=== PATIENT | male | born 1985 | race Hispanic/Latino ===

== ENCOUNTER 2021-01-07 14:47 | Inpatient (IN) | payer OTHER ==
--- NOTE | 2021-01-07 15:34 | RAD ---
EXAM: CHEST ONE VIEW HISTORY: Hyperglycemia. COMPARISON: None FINDINGS: Cardiac silhouette is magnified by projection. The pulmonary vasculature is within normal limits. The lungs are clear. The osseous structures are intact. IMPRESSION: No acute cardiopulmonary process.
[2021-01-07 15:36] LABS: #Lymphocytes 0.8 thou/uL (1.20-3.40); #Monocytes 0.8 thou/uL (0.11-0.59); #Neutrophils 15.6 thou/uL (1.40-6.50); %Basophils 0.2 % (0.0-1.0); %Eosinophils 0.1 % (0.0-10.0); %Lymphocytes 4.7 % (21.0-51.0); %Monocytes 4.3 % (0.0-10.0); %Neutrophils 90.7 % (42.0-75.0); Hemoglobin 14.2 g/dL (14.0-18.0); Mean Corpuscular HGB CONC 33.2 g/dL (32.0-36.0); Mean Corpuscular Hemoglobin 28.8 pg (27.0-31.0); Mean Corpuscular Volume 86.5 fL (78.0-98.0); Mean Platelet Volume 10.2 fL (7.4-10.4); Platelet Count 200 thou/uL (130-400); RBC Distribution Width 11.8 % (11.5-14.5); Red Blood Cell (RBC) Count 4.92 mill/uL (4.70-6.10); White Blood Cell (WBC) Count 17.2 thou/uL (4.8-10.8)
[2021-01-07] MEDS ORDERED: Ondansetron PF 4 MG/2 ML Vial ONE ×2 (16:03→16:08)
[2021-01-07 16:10] LABS: Base Excess-Venous -8.5 mmol/L (-2.0 to 3.0); CO2 Tension (PvCO2) 39.7 mmHg (42.0-51.0); Calcium, Ionized 1.06 mmol/L (1.15-1.33); Chloride 104 mmol/L (98-107); Hemoglobin - Calc 14.5 g/dL (14.0-18.0); Potassium 5.3 mmol/L (3.5-5.1); Sodium 134 mmol/L (138-145); T. Carbon Dioxide 19.2 mmol/L (22.0-28.0); vO2 Saturation-calc 94.1 % (60.0-85.0)
[2021-01-07 16:25] LABS: Bilirubin Negative (Negative); Blood, Urine Negative (Negative); Clarity Clear (Clear); Glucose, Urine (Dipstick) Greater than 1000 mg/dL (Negative); Ketone, Urine Greater than 150 mg/dL (Negative); Leukocyte Negative Leu/uL (Negative); Nitrite Negative (Negative); Protein, Urine (Dipstick) Negative (Neg-Trace); Urobilinogen Normal mg/dL (Less than 2)
[2021-01-07 16:47] LABS: ALT (SGPT) 20 U/L (8-55); AST (SGOT) 19 U/L (5-34); Alkaline Phosphatase 100 U/L (40-110); Anion Gap 36 mmol/L (10-20); BUN (Urea Nitrogen) 30 mg/dL (8.9-20.6); Bilirubin, Total 0.9 mg/dL (0.2-1.2); Calc. Creatinine Clearance 0 mL/min (70-130); Calcium 9.9 mg/dL (7.8-10.44); Carbon Dioxide 15 mmol/L (22-29); Chloride 94 mmol/L (98-107); Globulin 3.4 g/dL (2.4-3.5); Magnesium 2.4 mg/dL (1.6-2.6); Phosphorus 6.8 mg/dL (2.3-4.7); Potassium 4.8 mmol/L (3.5-5.1); Protein, Total 8.4 g/dL (6.0-8.3); Sodium 140 mmol/L (136-145)
[2021-01-07 16:58] LABS: Glucose 558 mg/dL (70-105)
[2021-01-07] MEDS ORDERED: INSULIN REGULAR IN 0.9 % NACL 100 UNIT/100 ML BAG ONE (17:11)
[2021-01-07] MEDS ORDERED: NS 0.9% w/ 20 MEQ KCL 0 ML ONE (17:11)
[2021-01-07] MEDS ORDERED: Insulin Regular 300 UNITS/3 ML VIAL ONE (17:12)
[2021-01-07] MEDS ORDERED: NS 0.9% w/ 20 MEQ KCL 1,000 ML ONE ×2 (17:12→21:22)
--- NOTE | 2021-01-07 18:10 | PDOC.FPRHP ---
- History of Present Illness Chief Complaint: Hyperglycemia, Nausea History of Present Illness: Pt is a 35 yo male with PMH significant for DM I who presents to the ED with nausea, decreased PO intake, and missed insulin dosing since yesterday. He normally take 70/30 20 U TID but unfortunately was arrested yesterday and missed his subsequent doses. He has not eaten since yesterday as well. He was diagnosed with DM I 15 years ago and states he has consistently takes his insulin. He did not recall an episode similar to this other than when he was diagnosed. His diagnosed was made in [place], [place]. He denies any source of infection. The officer with patient states once he is discharged he will be able to obtain i nsulin at skilled nursing. ED Course: Pt was bolused 2 L of NS. He was started on NS w/ 20 meq of K at 500 mls/hr per DKA protocol. He was given regular inuslin 7 U initially then started on 7 U drip. BG dropped by 300 points so insulin was halfed to 3.5 U/hr. - Allergies/Adverse Reactions Allergies Allergy/AdvReac Type Severity Reaction Status Date / Time No Known Allergies Allergy Unverified 01/07/21 17:10 - Home Medications Medication Instructions Recorded Confirmed Type HumuLIN 70/30 [HumuLIN 70/30 Vial] 20 unit SC TID 01/08/21 01/08/21 History - History PMHx: DM I PSHx: none FHx: denies Social: drinks 3 beers/weekend, denies drugs and tobacco. Lives in [facility]. - Review of Systems General: denies: fever/chills, weight/appetite/sleep changes Eyes: denies: eye pain, vision changes ENT: denies: nasal congestion, rhinorrhea Respiratory: denies: cough, congestion, shortness of breath Cardiovascular: denies: chest pain, palpitation, edema, paroxysmal nocturnal dyspnea Gastrointestinal: reports: nausea. denies: vomiting, diarrhea, constipation Genitourinary: reports: polyuria. denies: incontinence, dysuria Skin: denies: rashes, lesions Musculoskeletal: denies: pain, tenderness Neurological: denies: numbness, syncope Psychological: denies: anxiety, depression - Vital signs BP: 118/66 HR: 107 RR: 14 Tmax: 98.2 Pox: 98% on RA Wt: 68 kg - Physical Exam -Constitutional: uncomfortable appearing HEENT: normocephalic and atraumatic, PERRLA, EOMI Neck: FROM, no JVD Heart: RRR, normal S1/S2, no murmurs/rubs/gallops, pulses present, no edema Lungs: CTAB, no respiratory distress, good air movement, no rales/rhonchi, no wheezing Abdomen: soft, non-tender, bowel sounds present Musculoskeletal: normal tone, ROM grossly normal Neurological: no focal deficit, CN II-XII intact Skin: no rash/lesions, good turgor, capillary refill <2 seconds Heme/Lymphatic: no purpura, no petechia Psychiatric: good judgment and insight -Psychiatric: flat affect FMR H&P: Results - Labs Result Diagrams: 01/08/21 03:10 01/08/21 03:10 Lab results: WBC 17.2 thou/uL (4.8-10.8) H 01/07/21 15:20 Hgb 14.2 g/dL (14.0-18.0) 01/07/21 15:20 Hct 42.6 % (42.0-52.0) 01/07/21 15:20 MCV 86.5 fL (78.0-98.0) 01/07/21 15:20 Plt Count 200 thou/uL (130-400) 01/07/21 15:20 Neutrophils % 90.7 % (42.0-75.0) H 01/07/21 15:20 VBG pCO2 39.7 mmHg (42.0-51.0) L 01/07/21 16:06 VBG pO2 81.1 mmHg (35.0-45.0) H 01/07/21 16:06 Sodium 140 mmol/L (136-145) 01/07/21 15:20 Potassium 4.8 mmol/L (3.5-5.1) 01/07/21 15:20 Chloride 94 mmol/L (98-107) L 01/07/21 15:20 Carbon Dioxide 15 mmol/L (22-29) L 01/07/21 15:20 BUN 30 mg/dL (8.9-20.6) H 01/07/21 15:20 Creatinine 1.76 mg/dL (0.7-1.3) H 01/07/21 15:20 Glucose 558 mg/dL (70-105) H* 01/07/21 15:20 Calcium 9.9 mg/dL (7.8-10.44) 01/07/21 15:20 Total Bilirubin 0.9 mg/dL (0.2-1.2) 01/07/21 15:20 AST 19 U/L (5-34) 01/07/21 15:20 ALT 20 U/L (8-55) 01/07/21 15:20 Alkaline Phosphatase 100 U/L (40-110) 01/07/21 15:20 Serum Total Protein 8.4 g/dL (6.0-8.3) H 01/07/21 15:20 Albumin 5.0 g/dL (3.5-5.0) 01/07/21 15:20 Urine Ketones Greater than 150 mg/dL (Negative) A 01/07/21 15:53 Urine Blood Negative (Negative) 01/07/21 15:53 Urine Nitrite Negative (Negative) 01/07/21 15:53 Ur Leukocyte Esterase Negative Martita/uL (Negative) 01/07/21 15:53 - Radiology Interpretation Chest x-ray Status: image reviewed by me, report reviewed by me Additional comment: No acute abnormalities FMR H&P: A/P - Plan Pt is a 35 yo male with PMH significant for DM I: # DKA Acidotic on ABG. AG 31. S/P 2 L bolus NS in ED and started on NS w/ 20 meq K at 500 mls/hr. Currently on reg insulin drip at 3.5 U/hr, decreased from 7U/hr due to drop in BG by 300 points. - start DKA protocol - continue fluids - monitor BG hourly - monitor BMP for K, AG every 4 hours - NPO at this time - will start NPH when gap has closed. Pt buy insulin OTC. He needs a PCP. - C-peptide pending - consider TSH in future as he is prone to autoimmune disease # EVERETTE - likely pre-renal 2/2 dehydration # Pt needs a PCP Fluids: per protocol Diet: NPO VTE: Lovenox Code: Full Dispo: admit to [facility] inpatient FMR H&P: Upper Level - Plan Date/Time: 01/07/211808 I, [], have evaluated this patient and agree with findings/plan as outlined by internet webmaster resident. Pertinent changes/additions are listed here. Addendum - Attending - Attending Attestation Date/Time: 01/07/21 8320 I personally evaluated the patient and discussed the management with Dr. Spicer I agree with the History, Examination, Assessment and Plan documented above with any addition or exceptions noted below. 35 yo male with type I DM admitted for DKA. Place in ICU. Continue insulin drip until gap closed. Bicarb stable at this time. Continue to monitor potassium closely. NPO until gap closed. Monitor. No s/sx of infection. Likely related to missed insulin. Last DKA 15 years ago. Has been managing outpatient without MD oversight. Ramya
[2021-01-07] MEDS ORDERED: Dextrose 5 %-0.45 % NaCl 1,000 ML IV SCH (22:00)
[2021-01-07 22:28] LABS: Anion Gap 15 mmol/L (10-20); BUN (Urea Nitrogen) 20 mg/dL (8.9-20.6); Calc. Creatinine Clearance 0 mL/min (70-130); Calcium 8.2 mg/dL (7.8-10.44); Carbon Dioxide 21 mmol/L (22-29); Chloride 110 mmol/L (98-107); Glucose 138 mg/dL (70-105); Potassium 4.1 mmol/L (3.5-5.1); Sodium 142 mmol/L (136-145)
[2021-01-07] MEDS: NS 0.9% w/ 40 MEQ KCL 1,000 ML IV SCH ×2 (22:47→22:48)
[2021-01-07 22:52] LABS: SARS-CoV-2 PCR by NAA Not Detected (NotDetected)
[2021-01-07] MEDS ORDERED: NPH, Human Insulin Isophane 300 UNIT/3 ML VIAL SC SCH (23:00)
[2021-01-07] MEDS ORDERED: HumaLOG 300 UNITS/3 ML VIAL ONE (23:01)
[2021-01-08] MEDS ORDERED: HumaLOG 300 UNITS/3 ML VIAL SC PRN ×2 (00:57)
[2021-01-08] MEDS ORDERED: Dextrose 50% Abboject 50 ML SYRINGE SLOW IVP PRN (00:57)
[2021-01-08] MEDS ORDERED: Dextrose 5% in Water 1,000 ML IV PRN (00:57)
[2021-01-08] MEDS ORDERED: Electrolyte Replacement Protocol IVPB SCH (01:54)
[2021-01-08] MEDS ORDERED: Ondansetron ODT 4 MG TAB PO PRN (01:54)
[2021-01-08 03:21] LABS: #Basophils 0.1 thou/uL (0.0-0.2); #Lymphocytes 1.3 thou/uL (1.20-3.40); %Basophils 0.6 % (0.0-1.0); %Lymphocytes 10.8 % (21.0-51.0); %Monocytes 8.1 % (0.0-10.0); %Neutrophils 80.5 % (42.0-75.0); Hemoglobin 11.9 g/dL (14.0-18.0); Mean Corpuscular HGB CONC 33.9 g/dL (32.0-36.0); Mean Corpuscular Hemoglobin 29.2 pg (27.0-31.0); Mean Corpuscular Volume 86.1 fL (78.0-98.0); Mean Platelet Volume 9.3 fL (7.4-10.4); Platelet Count 180 thou/uL (130-400); RBC Distribution Width 11.7 % (11.5-14.5); Red Blood Cell (RBC) Count 4.09 mill/uL (4.70-6.10); White Blood Cell (WBC) Count 12.4 thou/uL (4.8-10.8)
[2021-01-08 03:30] LABS: Hemoglobin A1c 11.8 % (4.0-6.0)
[2021-01-08 03:40] LABS: Anion Gap 10 mmol/L (10-20); BUN (Urea Nitrogen) 19 mg/dL (8.9-20.6); Calc. Creatinine Clearance 76 mL/min (70-130); Calcium 7.8 mg/dL (7.8-10.44); Carbon Dioxide 24 mmol/L (22-29); Chloride 109 mmol/L (98-107); Glucose 157 mg/dL (70-105); Potassium 3.8 mmol/L (3.5-5.1); Sodium 139 mmol/L (136-145)
[2021-01-08] MEDS: Lactated Ringer's 1,000 ML IV SCH ×3 (03:55→15:26)
[2021-01-08] MEDS ORDERED: diphenhydrAMINE 50 MG/ML VIAL ONE (06:24)
--- NOTE | 2021-01-08 07:58 | PDOC.FM ---
- Subjective Subjective: Denies any complaints this morning. No events overnight. Off the insulin drip. Tolerating PO. - Objective Vital Signs & Weight: Vital Signs (12 hours) Temp Pulse Resp BP Pulse Ox 01/08/21 06:09 98.3 F 106 H 17 99/52 L 100 01/08/21 02:40 93 17 101/62 100 01/07/21 23:05 98.1 F 103 H 18 100 Weight Weight 54.431 kg Most Recent Monitor Data Heart Rate from ECG 89 NIBP 98/54 Respiration from ECG 17 SpO2 100 I&O: 01/07/21 01/08/21 01/09/21 06:59 06:59 06:59 Intake Total 1280 Output Total 1400 Balance -120 Result Diagrams: 01/08/21 03:10 01/08/21 03:10 Phys Exam - Physical Examination Constitutional: NAD HEENT: moist MMs Neck: full ROM Respiratory: no wheezing, clear to auscultation bilateral Cardiovascular: RRR, no significant murmur Gastrointestinal: soft, non-tender, no distention Musculoskeletal: no edema Neurological: normal sensation, moves all 4 limbs Psychiatric: normal affect, A&O x 3 Skin: cap refill <2 seconds Dx/Plan - Plan Plan: DKA - Resolved - Gap closed, currently 6 - Insulin drip stopped - Given 32u NPH and resumed home 70/30 20u TID with moderate SSI - Will observe glucose on this regimen and adjust as needed - C-peptide pending - A1c 11.8 EVERETTE - Resolved - likely pre-renal 2/2 dehydration Fluids: per protocol Diet: NPO VTE: Lovenox Code: Full Dispo: Still ED hold. Can now go to medical floor. Continue to titrate insulin to goal glucose levels for stable outpatient regimen. Addendum - Attending - Attending Attestation Date/Time: 01/08/21 1321 I personally evaluated the patient and discussed the management with Dr. Plaza. I agree with the History, Examination, Assessment and Plan documented above with any addition or exceptions noted below. He is back on his home insulin regimen. if he can tolerate PO and maintain glycemic control, can d/c later today.
[2021-01-08] MEDS ORDERED: Enoxaparin Sodium 40 MG/0.4 ML SYRINGE ONE (08:43)
[2021-01-08] MEDS ORDERED: Famotidine 20 MG TAB ONE (08:43)
[2021-01-08] MEDS ORDERED: Prevnar 13-Val Conj/PF 0.5 ML SYRINGE IM ONE (09:00)
[2021-01-08] MEDS ORDERED: Famotidine 20 MG TAB PO SCH (09:00)
[2021-01-08] MEDS ORDERED: Enoxaparin Sodium 40 MG/0.4 ML SYRINGE SC SCH (09:00)
[2021-01-08] MEDS ORDERED: FLU VACC QS2020-21(6MOS UP)/PF 60 MCG/0.5 ML SYRINGE IM ONE (09:00)
[2021-01-08] MEDS: HumuLIN 70/30 (300 UNITS/3 ML VIAL) SC SCH ×2 (11:17→13:37)
[2021-01-08 12:24] VITALS: BP 115/80; TEMP 98.4
--- NOTE | 2021-01-09 03:08 | DIS ---
DATE OF ADMISSION: 01/07/2021 DATE OF DISCHARGE: 01/08/2021 ADMITTING ATTENDING: Dr. Aby Pablo. DISCHARGE ATTENDING: Dr. Charlie Draper. RESIDENT: Luisito Plaza DO CONSULTS: None. PROCEDURES: None. PRIMARY DIAGNOSIS: Diabetic ketoacidosis. SECONDARY DIAGNOSES: Type 1 diabetes, acute kidney injury. DISCHARGE MEDICATIONS: Insulin 70/30 of 20 units t.i.d. HISTORY OF PRESENT ILLNESS AND HOSPITAL COURSE: A 35-year-old male presented [facility] department from [facility] with complaints of nausea, decreased p.o. intake. He states that he normally takes 70/30 insulin 20 units t.i.d., but unfortunately after was arrested, missed all subsequent doses. He also notes that he had not eaten well yesterday. Workup in the emergency department showed positive ketones with a glucose around 600 and a gap of 31. He was started on DKA protocol with subsequent closure of his gap approximately 6 hours later. He was started on long-acting NPH and was able to eat without problems. He was then resumed on his home insulin regimen with subsequent glucose in acceptable levels. He was tolerating p.o. adequately at the time of discharge. DISCHARGE INSTRUCTIONS: 1. Location: [facility]. 2. Activity: As tolerated. 3. Followup: Follow up with PCP within 7 days. Job ID: [id number]
== END 2021-01-08 16:03 | DRG 638 ==
LOC: ERS 14:47 → ERHOLD 18:14
PROVIDERS: ADMIT Student in an Organized Health Care Education/Training Program; ATTEND Student in an Organized Health Care Education/Training Program
DX: E10.10 Type 1 diabetes mellitus with ketoacidosis without coma (principal); N17.9 Acute kidney failure, unspecified; E86.0 Dehydration; Z20.822 Contact with and (suspected) exposure to COVID-19; Z91.14 Patient's other noncompliance with medication regimen
CPT/HCPCS: 36415; 36416; 71045; 80048; 80053; 81003; 82010; 82330; 82803; 83036; 83735; 84100; 84681; 85025; 87635; 93005; 96365; 96366; 96375; 96376; J1200; J1650; J1815; J2405; J3480; U0003; U0005